=== PATIENT | female | born 1945 | race Caucasian/White ===

== ENCOUNTER → 2020-12-31 10:02 | Outpatient (BNVA) | payer MEDICARE, BC, SELFPAY | PROVIDERS: PCP Obstetrics & Gynecology; Visit Provider Internal Medicine | DX: M06.9 Rheumatoid arthritis, unspecified (principal); M19.90 Unspecified osteoarthritis, unspecified site; G62.9 Polyneuropathy, unspecified; Z79.899 Other long term (current) drug therapy; Z11.59 Encounter for screening for other viral diseases; Z11.1 Encounter for screening for respiratory tuberculosis | CPT/HCPCS: 36415; 73080; 73120; 73620; 80053; 82550; 83735; 84100; 85025; 85651; 86140; 86200; 86431; 86480; 86704; 86803; 87340; 99204; 99214 ==

== ENCOUNTER 2020-12-31 12:13 | Outpatient (CLI) | payer MEDICARE, BC, SELFPAY ==
--- NOTE | 2020-12-31 12:22 | XR_ITS ---
WS: [email or web address] Right hand, 2 views, 12/31/2020 Clinical Data: M19.90 - Unspecified osteoarthritis, unspecified site Comparison: None. Findings: No fractures or dislocations are seen. The soft tissues are unremarkable. The joint space s are normal There is no periarticular demineralization or calcifications. 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
--- NOTE | 2020-12-31 12:22 | XR_ITS ---
WS: [email or web address] Right elbow, 3 views, 12/31/2020 Clinical Data: M19.90 - Unspecified osteoarthritis, unspecified site Comparison: None. Findings: No fractures or dislocations are seen. The radial head is normal. The soft tissues are unremarkable. 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
--- NOTE | 2020-12-31 12:22 | XR_ITS ---
WS: [email or web address] Left foot, 3 views, 12/31/2020 Clinical Data: M25.50 - Pain in unspecified joint Comparison: None. Findings: No fractures or dislocations are seen. No bone destruction or erosion is noted. The joint spaces and soft tissues are normal. There is a plantar spur. XR/XR foot LT 2V [id number] Impression: Negative left foot.
--- NOTE | 2020-12-31 12:22 | XR_ITS ---
WS: [email or web address] Left hand, 3 views, 12/31/2020 Clinical Data: M19.90 - Unspecified osteoarthritis, unspecified site Comparison: None. Findings: No fractures or dislocations are seen. The soft tissues are unremarkable. The joint spaces are normal No periarticular demineralization or calcifications are seen. 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 XR/XR hand LT 2V [id number] Impression: Negative left hand.
--- NOTE | 2020-12-31 12:22 | XR_ITS ---
WS: [email or web address] Right foot, 2 views, 12/31/2020 Clinical Data: M25.50 - Pain in unspecified joint Comparison: None. Findings: No fractures or dislocations are seen. No bone destruction or erosion is noted. The joint spaces and soft tissues are normal. No periarticular demineralization or calcifications are seen. There is a plantar spur and an Achilles spur. 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
--- NOTE | 2020-12-31 12:22 | XR_ITS ---
WS: [email or web address] Left elbow, 3 views, 12/31/2020 Clinical Data: M19.90 - Unspecified osteoarthritis, unspecified site Comparison: None. Findings: No fractures or dislocations are seen. The radial head is normal. The soft tissues are unremarkable. XR/XR elbow LT min 3V* [id number] Impression: Negative left elbow.
== END 2020-12-31 12:14 | disposition home or self-care (01) ==
LOC: RAD 12:20
PROVIDERS: PCP Obstetrics & Gynecology; Visit Provider Internal Medicine
DX: M19.90 Unspecified osteoarthritis, unspecified site (principal); G62.9 Polyneuropathy, unspecified
CPT/HCPCS: 73080; 73120; 73620; 80053; 82550; 83735; 84100; 85025; 85651; 86140; 86200; 86431; 86480; 86704; 86803; 87340

== ENCOUNTER → 2021-01-05 11:06 | Outpatient (BNVA) | payer MEDICARE, BC, SELFPAY | PROVIDERS: PCP Obstetrics & Gynecology; Visit Provider Internal Medicine | DX: M19.90 Unspecified osteoarthritis, unspecified site (principal); G62.9 Polyneuropathy, unspecified; M65.331 Trigger finger, right middle finger | CPT/HCPCS: 99213; 99214 ==